=== PATIENT | female | born 1985 | race Caucasian/White ===

== ENCOUNTER → 2020-07-22 | Outpatient (CLI) | payer SELFPAY ==
[~2020-07-22] MED LIST: IBU600 MG PO; PERCOCET 325 MG1 TA2 PO; PRENATAL; SLOW FE142 MG PO; ZOLOFT 50MG50 MG PO
== END ==
LOC: ZCOL.LAB 10:23
DX: Z20.822 Contact with and (suspected) exposure to COVID-19 (principal)

== ENCOUNTER 2020-07-27 08:37 | Inpatient (IN) | payer MEDICAID ==
[~2020-07-27] VITALS: Ht 160 cm; Wt 99.1 kg
[2020-07-27] VITALS (16 sets, daily range): BP systolic 93–126; BP diastolic 51–76; PULSE 57–96; TEMP 97.6–98.3
--- NOTE | 2020-07-27 10:30 | NUR ---
PT ARRIVES AMBULATORY TO ROOM 222 FOR SCHEDULED REPEAT CSECTION, ASSISTED INTO GOWN, EDUCATION PROVIDED ON POC, CONSENTS SIGNED, INT TO LEFT WRIST, LABS OBTAINED, LR INFUSING PER PROTOCOL, BABY PLACED ON EFM/TOCO MONITOR, MINIMAL VARIABILITY NOTED IMPROVING WITH POSITION CHANGE, PT REPORTING STRONG CONTRACTIONS SINCE MONDAY Q8-10MIN WORSENING THROUGHOUT THE NIGHT LAST NIGHT, UNABLE TO SLEEP, SVE /-3, PT BREATHING HEAVILY THROUGH CONTRACTIONS, DENIES LEAKING OF FLUID OR VAGINAL BLEEDING, REPORTS POSITIVE MOVEMENT, DENIES FURTHER QUESTIONS OR CONCERNS AT THIS TIME
[2020-07-27] MEDS ORDERED: SLOW FE142 MG PO (10:36)
[2020-07-27] MEDS ORDERED: ZOLOFT 50MG50 MG PO (10:37)
[2020-07-27] MEDS ORDERED: PRENATAL (10:37)
[2020-07-27 11:00] LABS: BASO % 0.4 % (0.0-2.0); EOS # 0.1 (0.0-0.7); EOS % 0.5 % (0-4.0); GRAN # 7.8 (1.4-6.5); GRAN % 78.9 % (42.2-75.2); HEMATOCRIT 38.8 % (37.0-47.0); HEMOGLOBIN 12.5 g/dl (12.5-16.0); LYMPH # 1.5 (1.2-3.4); LYMPH % 14.9 % (20.0-51.0); MEAN CELL VOLUME 85 fl (80.0-100.0); MEAN CORPUSCULAR HEMOGLOBIN 27 pg (27.0-31.0); MEAN CORPUSCULAR HGB CONC 32 g/dl (33.0-37.0); MEAN PLATELET VOLUME 11.8 fl (7.4-10.4); MONO # 0.5 (0.1-0.6); MONO % 4.9 % (1.7-9.3); PLATELET COUNT 258 K/mm3 (130-400); RED BLOOD COUNT 4.57 M/mm3 (4.10-5.30); REDCELL DISTRIBUTION WIDTH-CV 14.9 % (11.5-14.5)
--- NOTE | 2020-07-27 15:00 | NUR ---
1430- Moderate lochia with fundal exam, [place] size clot expressed. Fundus firm and midline. Pads changed, sagrario care provided. Will cont to monitor. 1445- [place] size clot expressed with fundal exam. Fundus firm, and midline. Dr. Finley updated on patient, orders received. See physician notification.
--- NOTE | 2020-07-27 15:07 | NUR ---
ADMISSIONS CONTACTED WITH PATIENTS DESIRE TO BE MADE NO INFO. ADMISSIONS VERALIZED THIS WAS CHANGED IN COMPUTER. CALL FROM NICHOL, ADMISSIONS, THAT PATIENTS DAUGHTER WHO BROUGHT HER TO HOSPITAL IS ADMISSIONS WITH CHILDREN WANTING TO SEE PATIENT, RN TALKED WITH NICHOL THAT VISITORS NEED TO HAVE PATIENTS CODE (LAST 4 OF V#) TO BE ABLE TO SEE PATIENT AND THAT CHILDREN ARE NOT ALLOWED. RN PROVIDED VISIT CODE TO PATIENT AND EXPLAINED SHE CAN ONLY HAVE THE ONE SUPPORT PERSON AND VIDEO AND NO CHILDREN ARE ALLOWED ON UNIT. UNDERSTANDING VERBALIZED.
[2020-07-28] VITALS: BP 119/63; PULSE 82; TEMP 98.1
[2020-07-28 04:00] VITALS: BP 112/60; PULSE 80; TEMP 98.4
[2020-07-28 07:31] VITALS: BP 114/63; PULSE 75; TEMP 98
--- NOTE | 2020-07-28 10:44 | NUR ---
Initial visit; Patient thanked Bandsaw Operator for offering congratulations and God's blessings for the of their son. Bandsaw Operator thanked mother for choosing [facility].
[2020-07-28 12:24] VITALS: BP 109/63; PULSE 87; TEMP 98
--- NOTE | 2020-07-28 13:37 | NUR ---
[employer] Inspecting Dispatcher responded to social service consult in OB to review resources with patient. SW met with patient who reports she lives in [place] with her three children: Dino (10), Ishmael (8), Charles (4). Patient states she also has two adult children ages 21 and 18 that live here in [place]. Patient states she does not have any other family in the area. Patient advised that father of babyUmberto is not involved but is aware she gave . Patient reports her cabinetmaker apprentice, Sandra Herr (ph#[phone]) is watching her three children at home right now. Patient states she attends the [employer] and feels supported by the hindu. Patient is a stay at home mom and advised she is able to pay her bills and utilities using child support she receives from her other children's father. Patient advised she is good at budgeting and has not had any difficulties paying her bills recently. Patient is established with [facility] through the [facility]. Patient advised she has all supplies needed for baby and feels good about returning home. Patient reports a history of depression and states she has been on an antidepressant for a while and plans to continue upon discharge. Patient obtains her antidepressant at [facility] and has had no issues affording it so far. SW discussed additional mental health services like therapy but patient is not interested at this time. Patient is self pay so SW consulted Dang, Financial Counselor. LUZ provided [facility] Resource Guide to patient and reviewed agencies like [facility], [facility], and [employer]. Patient will return home with baby upon discharge. LUZ contacted Dr. Nelson to review the above information.
[2020-07-28 16:28] VITALS: BP 131/92; PULSE 87; TEMP 98
[2020-07-28 20:00] VITALS: BP 115/69; PULSE 77; TEMP 98.2
[2020-07-29 08:30] VITALS: BP 112/72; PULSE 83; TEMP 97.6
[2020-07-29 16:25] VITALS: BP 114/68; PULSE 76; TEMP 98.1
[2020-07-29 20:45] VITALS: BP 120/73; PULSE 92; TEMP 98
[2020-07-29] MEDS ORDERED: IBU600 MG PO (21:10)
[2020-07-29] MEDS ORDERED: PERCOCET 325 MG1 TA2 PO (21:10)
[2020-07-30 08:55] VITALS: BP 108/72; PULSE 85; TEMP 98.1
== END 2020-07-30 13:15 | disposition home or self-care (01) | DRG 788 ==
LOC: OB 10:17
PROVIDERS: ADMIT Obstetrics & Gynecology
PROC: 10D00Z1 Extraction of Products of Conception, Low, Open Approach (ICD-10-PCS; principal; 2020-07-27)
DX: O34.211 Maternal care for low transverse scar from previous cesarean delivery (principal); O36.63X0 Maternal care for excessive fetal growth, third trimester, not applicable or unspecified; O99.214 Obesity complicating childbirth; E66.9 Obesity, unspecified; O99.344 Other mental disorders complicating childbirth; F32.9 Major depressive disorder, single episode, unspecified; O99.02 Anemia complicating childbirth; D64.9 Anemia, unspecified; Z3A.39 39 weeks gestation of pregnancy; Z37.0 Single live birth
CPT/HCPCS: J0690; J1885; J2210; J2405; J2590; J2765; J7120